=== PATIENT | male | born 1965 | race Caucasian/White ===

== ENCOUNTER 2017-12-18 15:09 | Emergency (ER) | payer BC, OTHER ==
[2017-12-18] MEDS ORDERED: NS 1,000 ML IV ONE (15:24)
--- NOTE | 2017-12-18 15:24 | EDPHY ---
H & P Stated Complaint: BGL 300; no other sxs except slight nausea Time Seen by Provider: 12/18/17 15:20 HPI/ROS: CHIEF COMPLAINT: Elevated blood glucose HISTORY OF PRESENT ILLNESS: The patient is a 52-year-old type 2 diabetic who has been taking his medications regularly in eating consistently. He noticed today that his blood sugar was 300. Typically states that is round 150. He does not feel ill or nauseous at all but was told by his he needed to come get checked out. He states that it is only been this high once before and he went to the ER received a few L of fluid and then went home. REVIEW OF SYSTEMS: Constitutional: denies: chills, fever, recent illness, recent injury EENTM: denies: blurred vision, double vision, nose congestion Respiratory: denies: cough, shortness of breath Cardiac: denies: chest pain, irregular heart rate, lightheadedness, palpitations Gastrointestinal/Abdominal: denies: abdominal pain, diarrhea, nausea, vomiting, blood streaked stools Genitourinary: denies: dysuria, frequency, hematuria, pain Musculoskeletal: denies: joint pain, muscle pain Skin: denies: lesions, rash, jaundice, bruising Neurological: denies: headache, numbness, paresthesia, tingling, dizziness, weakness Hematologic/Lymphatic: denies: blood clots, easy bleeding, easy bruising Immunologic/allergic: denies: HIV/AIDS, transplant EXAM: GENERAL: Well-appearing, obese and in no acute distress. HEAD: Atraumatic, normocephalic. EYES: Pupils equal round and reactive to light, extraocular movements intact, sclera anicteric, conjunctiva are normal. ENT: TMs normal, nares patent, oropharynx clear without exudates. Moist mucous membranes. NECK: Normal range of motion, supple without lymphadenopathy or JVD. LUNGS: Breath sounds clear to auscultation bilaterally and equal. No wheezes rales or rhonchi. HEART: Regular rate and rhythm without murmurs, rubs or gallops. ABDOMEN: Soft, nontender, normoactive bowel sounds. No guarding, no rebound. No masses appreciated. BACK: No CVA tenderness, no spinal tenderness, step-offs or deformities EXTREMITIES: Normal range of motion, no pitting or edema. No clubbing or cyanosis. NEUROLOGICAL: Cranial nerves II through XII grossly intact. Normal speech, normal gait. 5/5 strength, normal movement in all extremities, normal sensation PSYCH: Normal mood, normal affect. SKIN: Warm, dry, normal turgor, no visible rashes or lesions. Source: Patient Exam Limitations: No limitations - Personal History Current Tetanus Diphtheria and Acellular Pertussis (TDAP): Yes - Medical/Surgical History Hx Asthma: No Hx Chronic Respiratory Disease: No Hx Diabetes: Yes Hx Cardiac Disease: No Hx Renal Disease: No Hx Cirrhosis: No Hx Alcoholism: No Other PMH: Obesity, cholesterol. HTN. DM - Family History Significant Family History: No pertinent family hx - Social History Smoking Status: Never smoked Alcohol Use: Sober Drug Use: None Constitutional: Initial Vital Signs Temperature (C) 36.4 C 12/18/17 15:15 Heart Rate 116 H 12/18/17 15:15 Respiratory Rate 18 12/18/17 15:15 Blood Pressure 112/89 H 12/18/17 15:15 O2 Sat (%) 98 12/18/17 15:15 O2 Delivery Mode Room Air Allergies/Adverse Reactions: No Known Allergies Allergy (Unverified 12/18/17 15:12) Home Medications: Medication Instructions Recorded Amitriptyline HCl [Elavil 10 mg 10 mg PO 12/18/17 (*)] Aspirin EC [Aspirin EC 81 mg (*)] 81 mg PO DAILY 12/18/17 Gabapentin [Neurontin 300 MG (*)] 300 mg PO HS 12/18/17 Lisinopril/Hctz 20/12.5MG 1 ea PO 12/18/17 [Zestoretic/Prinzide 20/12.5MG (*)] Simvastatin 10 mg PO 12/18/17 glyBURIDE [Micronase] 2.5 mg PO 12/18/17 metFORMIN HCL [Glucophage 850 mg 850 mg PO 12/18/17 (*)] Medical Decision Making ED Course/Re-evaluation: The patient is well-appearing and has no physical complaints. He was simply worried about his elevated blood sugar. He has never had DKA. We will check his chemistries and hydrate him and possibly give IV insulin as well. We discussed the difference between emergency hyperglycemia and type 1 and type 2 diabetics but also discussed the fact that there is a lot of [place] area in between. 5:40 p.m. the patient's glucose has improved. He remains asymptomatic. We discussed keeping a journal of his glucose levels as well as his diet and following up with his primary which she has an appointment scheduled for on Wednesday. He and his appreciated and agree with this plan. They declined further workup or testing at this time in her eager to go home. Differential Diagnosis: Partial list of the Differential diagnosis considered include but were not limited to; hyperglycemia, diabetes, hyperosmolar, electrolyte abnormality and although unlikely based on the history and physical exam, I also considered DKA , gastroparesis. I discussed these differential diagnoses and the plan with the patient as well as the usual and expected course. The patient understands that the diagnosis is provisional and that in medicine we are not always correct and that further workup is often warranted. Usual and customary warnings were given. All of the patient's questions were answered. The patient was instructed to return to the emergency department should the symptoms at all worsen or return, otherwise to followup with the physician as we discussed. - Data Points Laboratory Results: Laboratory Results 12/18/17 15:40 12/18/17 15:40 12/18/17 12/18/17 12/18/17 17:38 15:40 15:40 WBC 7.38 10^3/uL 10^3/uL (3.80-9.50) RBC 5.52 10^6/uL 10^6/uL (4.40-6.38) Hgb 17.1 g/dL g/dL (13.7-17.5) POC Hgb 15.3 gm/dL gm/dL (13.7-17.5) Hct 47.1 % % (40.0-51.0) POC Hct 45 % % (40-51) MCV 85.3 fL fL (81.5-99.8) MCH 31.0 pg pg (27.9-34.1) MCHC 36.3 g/dL g/dL (32.4-36.7) RDW 13.0 % % (11.5-15.2) Plt Count 183 10^3/uL 10^3/uL (150-400) MPV 10.6 fL fL (8.7-11.7) Neut % (Auto) 52.8 % % (39.3-74.2) Lymph % (Auto) 34.7 % % (15.0-45.0) [place] % (Auto) 7.7 % % (4.5-13.0) Eos % (Auto) 3.7 % % (0.6-7.6) Baso % (Auto) 0.8 % % (0.3-1.7) Nucleat RBC Rel Count 0.0 % % (0.0-0.2) Absolute Neuts (auto) 3.90 10^3/uL 10^3/uL (1.70-6.50) Absolute Lymphs (auto) 2.56 10^3/uL 10^3/uL (1.00-3.00) Absolute Monos (auto) 0.57 10^3/uL 10^3/uL (0.30-0.80) Absolute Eos (auto) 0.27 10^3/uL 10^3/uL (0.03-0.40) Absolute Basos (auto) 0.06 10^3/uL 10^3/uL (0.02-0.10) Absolute Nucleated RBC 0.00 10^3/uL 10^3/uL (0-0.01) Immature Gran % 0.3 % % (0.0-1.1) Immature Gran # 0.02 10^3/uL 10^3/uL (0.00-0.10) POC Sodium 138 mEq/L mEq/L (135-145) Sodium 137 mEq/L mEq/L (135-145) POC Potassium 3.6 mEq/L mEq/L (3.3-5.0) Potassium 4.5 mEq/L mEq/L (3.5-5.2) POC Chloride 99 mEq/L mEq/L (97-110) Chloride 96 mEq/L L mEq/L (97-110) Carbon Dioxide 26 mEq/l mEq/l (22-31) Anion Gap 15 mEq/L mEq/L (8-16) POC BUN 19 mg/dL mg/dL (7-23) BUN 20 mg/dL mg/dL (7-23) Creatinine 1.0 mg/dL mg/dL (0.7-1.3) POC Creatinine 0.8 mg/dL mg/dL (0.7-1.3) Estimated GFR > 60 Glucose 370 mg/dL H mg/dL (70-100) POC Glucose 283 mg/dL H mg/dL (70-100) Calcium 9.1 mg/dL mg/dL (8.5-10.4) Medications Given: Discontinued Medications Sodium Chloride (Ns) 1,000 mls @ 1,000 mls/hr IV EDNOW ONE PRN Reason: Protocol Stop: 12/18/17 16:23 Last Admin: 12/18/17 15:41 Dose: 1,000 mls Insulin Human Regular (Humulin R) 5 unit IVP EDNOW ONE Stop: 12/18/17 16:29 Last Admin: 12/18/17 16:35 Dose: 5 units Point of Care Test Results: 12/18/17 17:38 POC Sodium 138 POC Potassium 3.6 POC Chloride 99 POC BUN 19 POC Creatinine 0.8 POC Glucose 283 H Departure - Departure Disposition: Home, Routine, Self-Care Clinical Impression: Hyperglycemia Condition: Fair Instructions: Diabetic Hyperglycemia (ED) Referrals: Ngoc Mtz MD [Primary Care Provider] - 1-2 days without fail
[2017-12-18 16:05] LABS: PLATELET COUNT 183 10^3/uL (150-400)
[2017-12-18] MEDS ORDERED: INSULIN REGULAR HUMAN 100 UNIT/ML UNIT IVP ONE (16:28)
[2017-12-18 17:50] VITALS: BP 119/71
== END 2017-12-18 17:50 | disposition home or self-care (01) ==
DX: E11.65 Type 2 diabetes mellitus with hyperglycemia (principal); I10 Essential (primary) hypertension; E86.9 Volume depletion, unspecified; Z79.82 Long term (current) use of aspirin; Z79.84 Long term (current) use of oral hypoglycemic drugs
CPT/HCPCS: 82947-QW; 96374; J1815

== ENCOUNTER 2018-08-06 13:14 | Emergency (ER) | payer OTHER ==
--- NOTE | 2018-08-06 14:47 | EDPHY ---
H & P Stated Complaint: abdominal, n/v Time Seen by Provider: 08/06/18 14:44 - Personal History Current Tetanus/Diphtheria Vaccine: Yes - Medical/Surgical History Hx Asthma: No Hx Chronic Respiratory Disease: No Hx Diabetes: Yes Hx Cardiac Disease: Yes Hx Renal Disease: No Hx Cirrhosis: No Hx Alcoholism: No Hx HIV/AIDS: No Hx Splenectomy or Spleen Trauma: No Other PMH: Obesity, cholesterol. HTN. DM, sleep apnea - Social History Smoking Status: Never smoked Constitutional: Initial Vital Signs Temperature (C) 36.2 C 08/06/18 13:18 Heart Rate 86 08/06/18 13:18 Respiratory Rate 16 08/06/18 13:18 Blood Pressure 185/119 H 08/06/18 13:18 O2 Sat (%) 95 08/06/18 13:18 O2 Delivery Mode Room Air Allergies/Adverse Reactions: No Known Allergies Allergy (Unverified 08/06/18 13:23) Home Medications: Medication Instructions Recorded Aspirin EC [Aspirin EC 81 mg (*)] 81 mg PO DAILY 12/18/17 Gabapentin [Neurontin 300 MG (*)] 300 mg PO HS 12/18/17 Lisinopril/Hctz 20/12.5MG 1 ea PO 12/18/17 [Zestoretic/Prinzide 20/12.5MG (*)] Simvastatin 10 mg PO 12/18/17 glyBURIDE [Micronase] 2.5 mg PO 12/18/17 HYDROcodone/APAP 10/325 [[place] 1 - 2 each PO Q4-6PRN PRN #20 tab 08/06/18 10/325] Ondansetron Odt [Zofran Odt 4 mg 4 mg PO Q4 PRN #10 tab 08/06/18 (RX)] Medical Decision Making - Diagnostics Imaging Results: Imaging Impressions Abdomen Ultrasound 08/06/18 15:04 Impression: Gallbladder is mildly distended with sludge but no evidence for cholelithiasis or cholecystitis. Mild hepatomegaly with probable fatty infiltration. Results called and discussed with Cesario Downey MD on 08/06/[address] 08/06/18 15:42 Impression: 1. Hepatic steatosis. No cirrhosis, liver lesion, or biliary obstruction. 2. No ascites. Patent portal vein. 3. Mildly distended gallbladder. 4. Constipation. No obstruction or appendicitis. Findings discussed with Emergency Department physician, Cesario Downey MD, on at 1631 hours. Imaging: Discussed imaging studies w/ outbound call center representative Radiologist ED Course/Re-evaluation: CHIEF COMPLAINT: Abdominal pain HISTORY OF PRESENT ILLNESS: This patient is a 53 year old male with history of hypertension, hyperlipidemia , diabetes mellitus. He presents today complaining of generalized cramping abdominal pain with associated nausea. This began suddenly this morning. He endorses associated episodes of diaphoresis and chills. He has never had similar symptoms in the past. He denies hematemesis, hematochezia, melena. No chest pain, difficulty breathing, lightheadedness, headache, or other associated symptoms. No recent abdominal or other trauma. No history of abdominal surgery. Patient reports he missed his morning dose of Lisinopril today. HPI partially obtained through patient's friend at bedside as patient is very uncomfortable-appearing. REVIEW OF SYSTEMS: A comprehensive 10 system review of systems is otherwise negative aside from elements mentioned in the history of present illness and medical decision making. PHYSICAL EXAM: HR, BP 185/119, O2 Sat, RR. Temp noted General Appearance: Obese. Alert, well hydrated, appropriate, and non-toxic appearing. Head: Atraumatic without scalp tenderness or obvious injury Eyes: Pupils equal, round, reactive to light and accommodation, EOMI, no trauma , no injection. Ears: Clear bilaterally, no perforation, normal landmarks Nose: Atraumatic, no rhinorrhea, clear. Throat: There is no erythema or exudates, no lesions, normal tonsils, mucus membranes moist. Neck: Supple, 2+ carotid upstroke, nontender, no lymphadenopathy. Respiratory: No retractions, no distress, no wheezes, and no accessory muscle use. Lungs are clear to auscultation bilaterally. Cardiovascular: Regular rate and rhythm, no murmurs, rubs, or gallops. Bilateral carotid, radial, dorsalis pedis, and posterior tibial pulses intact. Good capillary refill all extremities. Gastrointestinal: Exquisitely tender over RUQ. Abdomen is soft, non-distended, no masses, no rebound, no guarding, no peritoneal signs. Musculoskeletal: Normal active ROM of all extremities, atraumatic. Neurological: Alert, appropriate, and interactive. Nonfocal neuro exam. Skin: No rashes, good turgor, no nodules on palpation. Past medical history: Obesity, hyperlipidemia, hypertension, diabetes mellitus, sleep apnea. Past surgical history: Denies. Family history: Noncontributory. Social history: Single. Lives in [place]. Friend at bedside. DIFFERENTIAL DIAGNOSIS: The differential diagnosis for the patient's abdominal pain included but was not limited to appendicitis, cholecystitis, hernias, testicular torsion, gastritis, and urinary tract infection. MEDICAL DECISION MAKING: This 53 year old male presents with cramping right upper quadrant abdominal pain and nausea onset this morning. Exam reveals tenderness over RUQ. IV established. Plan for labs including CBC, chemistries, liver, lipase. Plan for US. Plan to administer 1mg IV Dilaudid, 4mg IV Zofran, 1L IV NS for symptom relief. Reviewed laboratory studies. LFTs elevated. BGL 308. WBC not elevated at this time. 15:[address] Rushing, radiologist. US abdomen is unremarkable. Plan for further evaluation including CT abdomen/pelvis, hepatitis panel. 16:[address] Rushing, radiologist. CT shows hepatic steatosis, no cirrhosis, liver lesion, or biliary obstruction. Mildly distended gallbladder. Evidence of constipation. No obstruction or appendicitis. Reassessed patient. Discussed imaging results. Patient is now able to get up and walk. Plan to discharge home in good condition. Follow up and return precautions discussed. He and his friend at bedside are comfortable with this plan. - Data Points Laboratory Results: Laboratory Results 08/06/18 14:37 08/06/18 14:37 08/06/18 08/06/18 08/06/18 17:00 14:37 14:37 WBC 6.44 10^3/uL 10^3/uL (3.80-9.50) RBC 5.77 10^6/uL 10^6/uL (4.40-6.38) Hgb 17.6 g/dL H g/dL (13.7-17.5) Hct 49.0 % % (40.0-51.0) MCV 84.9 fL fL (81.5-99.8) MCH 30.5 pg pg (27.9-34.1) MCHC 35.9 g/dL g/dL (32.4-36.7) RDW 13.2 % % (11.5-15.2) Plt Count 147 10^3/uL L 10^3/uL (150-400) MPV 10.4 fL fL (8.7-11.7) Neut % (Auto) 77.3 % H % (39.3-74.2) Lymph % (Auto) 16.3 % % (15.0-45.0) [place] % (Auto) 4.5 % % (4.5-13.0) Eos % (Auto) 0.5 % L % (0.6-7.6) Baso % (Auto) 0.5 % % (0.3-1.7) Nucleat RBC Rel Count 0.0 % % (0.0-0.2) Absolute Neuts (auto) 4.98 10^3/uL 10^3/uL (1.70-6.50) Absolute Lymphs (auto) 1.05 10^3/uL 10^3/uL (1.00-3.00) Absolute Monos (auto) 0.29 10^3/uL L 10^3/uL (0.30-0.80) Absolute Eos (auto) 0.03 10^3/uL 10^3/uL (0.03-0.40) Absolute Basos (auto) 0.03 10^3/uL 10^3/uL (0.02-0.10) Absolute Nucleated RBC 0.00 10^3/uL 10^3/uL (0-0.01) Immature Gran % 0.9 % % (0.0-1.1) Immature Gran # 0.06 10^3/uL 10^3/uL (0.00-0.10) Sodium 136 mEq/L mEq/L (135-145) Potassium 4.3 mEq/L mEq/L (3.5-5.2) Chloride 102 mEq/L mEq/L (97-110) Carbon Dioxide 22 mEq/l mEq/l (22-31) Anion Gap 12 mEq/L mEq/L (6-14) BUN 13 mg/dL mg/dL (7-23) Creatinine 0.8 mg/dL mg/dL (0.7-1.3) Estimated GFR > 60 Glucose 308 mg/dL H mg/dL (70-100) Calcium 9.7 mg/dL mg/dL (8.5-10.4) Total Bilirubin 1.1 mg/dL mg/dL (0.1-1.4) Conjugated Bilirubin 0.5 mg/dL mg/dL (0.0-0.5) Unconjugated Bilirubin 0.6 mg/dL mg/dL (0.0-1.1) AST 122 IU/L H IU/L (17-59) ALT 149 IU/L H IU/L (21-72) Alkaline Phosphatase 123 IU/L IU/L (38-126) Total Protein 8.2 g/dL g/dL (6.3-8.2) Albumin 4.5 g/dL g/dL (3.5-5.0) Lipase 93 IU/L IU/L (23-300) Hepatitis A IgM Ab Pending Hep Bs Antigen Pending Hep B Core IgM Ab Pending Hepatitis C Antibody Pending Medications Given: Discontinued Medications Hydromorphone HCl (Dilaudid) 1 mg IVP EDNOW ONE Stop: 08/06/18 15:03 Last Admin: 08/06/18 15:10 Dose: 1 mg Sodium Chloride (Ns) 1,000 mls @ 0 mls/hr IV EDNOW ONE; [place] PRN Reason: Protocol Stop: 08/06/18 15:03 Last Admin: 08/06/18 15:09 Dose: 1,000 mls Ondansetron HCl (Zofran) 4 mg IVP EDNOW ONE Stop: 08/06/18 15:03 Last Admin: 08/06/18 15:10 Dose: 4 mg Departure - Departure Disposition: Home, Routine, Self-Care Clinical Impression: Abdominal pain Qualifiers: Abdominal location: right upper quadrant Qualified Code(s): R10.11 - Right upper quadrant pain Nausea & vomiting Qualifiers: Vomiting type: unspecified Vomiting Intractability: non-intractable Qualified Code(s): R11.2 - Nausea with vomiting, unspecified Condition: Good Instructions: Hydrocodone/Acetaminophen (By mouth), Ondansetron (By mouth), Acute Nausea and Vomiting (ED), Acute Abdominal Pain (ED) Additional Instructions: Follow up with gastroenterology this week for further evaluation. Follow up with your primary care provider in 1-2 days. Results of your hepatitis panel are pending. Take Zofran as prescribed as needed for nausea. Take [place] as prescribed as needed for pain. Return to the emergency department immediately for any worsening of symptoms. Return to the emergency department for fever, uncontrollable vomiting or diarrhea, blood in your stool, or if you develop chest pain, shortness of breath , or other worsening of condition. Referrals: Pedro Pablo Singh MD [Medical Doctor] - As per Instructions Prescriptions: HYDROcodone/APAP 10/325 [[place] 10/325] 1 - 2 each PO Q4-6PRN PRN #20 tab PRN Reason: Pain, Moderate Ondansetron Odt [Zofran Odt 4 mg (RX)] 4 mg PO Q4 PRN #10 tab PRN Reason: Nausea/Vomiting, Use 1st Report Scribed for: Cesario Downey Report Scribed by: Micaela Dixon Date of Report: 08/06/18 Time of Report: 14:51
[2018-08-06] MEDS ORDERED: NS 1,000 ML IV ONE (15:02)
[2018-08-06] MEDS ORDERED: HYDROmorphONE/DILAUDID 2 MG/ML INJ IVP ONE (15:02)
[2018-08-06] MEDS ORDERED: ONDANSETRON 4 MG/2 ML VIAL IVP ONE (15:02)
[2018-08-06 15:20] LABS: PLATELET COUNT 147 10^3/uL (150-400)
[2018-08-06] MEDS ORDERED: IOPAMIDOL (ISOVUE 370) 100 ML BTL IV ONE (15:51)
[2018-08-06 17:50] VITALS: BP 170/88
[2018-08-08 06:19] LABS: HEPATITIS B SURFACE ANTIGEN NEGATIVE (NEGATIVE)
[2018-08-08 06:35] LABS: HEPATITIS A ANTIBODY IGM (BCH) NEGATIVE (NEGATIVE); HEPATITIS B CORE AB IGM NEGATIVE (NEGATIVE); HEPATITIS C ANTIBODY TOTAL NEGATIVE (NEGATIVE)
== END 2018-08-06 18:06 | disposition home or self-care (01) ==
DX: R10.11 Right upper quadrant pain (principal); R11.2 Nausea with vomiting, unspecified; E86.9 Volume depletion, unspecified
CPT/HCPCS: 96374; G0472; J1170; J2405; Q9967

== ENCOUNTER → 2018-09-28 | Outpatient (CLI) | payer OTHER | LOC: FIMAGING 12:29 | PROVIDERS: ATTEND Internal Medicine Gastroenterology | DX: R10.11 Right upper quadrant pain (principal); K21.9 Gastro-esophageal reflux disease without esophagitis | CPT/HCPCS: 78227; A9537 ==

== ENCOUNTER → 2018-12-05 | Outpatient (CLI) | payer OTHER | LOC: FIMAGING 10:51 | PROVIDERS: ATTEND Internal Medicine Gastroenterology | DX: R10.11 Right upper quadrant pain (principal); R16.1 Splenomegaly, not elsewhere classified ==